=== PATIENT | female | born 1995 | race Caucasian/White ===

== ENCOUNTER 2018-12-17 06:29 | Inpatient (IN) | payer OTHER ==
[2018-12-17] VITALS (15 sets, daily range): BP systolic 99–143; BP diastolic 57–91
[~2018-12-17] VITALS: Ht 177.8 cm; Wt 147.0 kg
[~2018-12-17 06:29] MED LIST: CEPHALEXIN500 M1 ORAL; CEPHALEXIN500 MG ORAL; COLACE100 MG ORAL; DILAUDID2 MG ORAL; INVANZ1 GM IVPB; NKM; NORCO 10/3251 EA ORAL; NORCO 5-325 TA1 EACH ORAL; PERCOCET 5-3251 EACH ORAL; PHENAZOPYRIDIN200 MG ORAL
--- NOTE | 2018-12-17 06:49 | Pre-Procedure Note/Attestation ---
Pre-Procedure Note/Attestation Complete Prior to Procedure Planned Procedure: bilateral Procedure Narrative: Bilateral breast reduction Attestation I attest that I discussed the nature of the procedure; its benefits; risks and complications; and alternatives (and the risks and benefits of such alternatives ), prior to the procedure, with the patient (or the patient's legal apparel trimmings sales representative). I attest that, if there was a reasonable possibility of needing a blood transfusion, the patient (or the patient's legal apparel trimmings sales representative) was given the [facility] standardized written summary, pursuant to the [place] Blood Safety Act ([place] Health and Safety Code # 1645, as amended). I attest that I re-evaluated the patient just prior to the surgery and that there has been no change in the patient's H&P, except as documented below: Ronit Bhatti MD Dec 17, 2018 06:49
[2018-12-17] MEDS ORDERED: ceFAZolin sod 1 GM in NS 55 ML IVPB ONE (07:00)
[2018-12-17] MEDS ORDERED: HYDROmorphone 1mg/ml Carpuject IVP PRN (07:00)
[2018-12-17] MEDS ORDERED: HYDROcodone/Acetamin 5/325 tab ORAL PRN (07:00)
[2018-12-17] MEDS ORDERED: HYDROcodone/Acetamin 10/325 tab ORAL PRN (07:00)
[2018-12-17] MEDS ORDERED: Zolpidem 5mg tab ORAL PRN ×2 (07:00→13:15)
[2018-12-17] MEDS ORDERED: fentaNYL 100 mcg/2 mL IV ONE (07:01)
[2018-12-17] MEDS ORDERED: Midazolam 2mg/2ml Inj ONE (07:01)
[2018-12-17] MEDS ORDERED: MELATONIN10 M1 ORAL (07:02)
[2018-12-17] MEDS ORDERED: Lidocaine 1% MPF 10mg/ml 5ml ONE ×2 (07:06→07:28)
[2018-12-17] MEDS ORDERED: Propofol 200mg/20ml IV ONE (07:06)
[2018-12-17] MEDS ORDERED: EPINEPHrine 1mg/1ml Amp ONE (07:07)
[2018-12-17] MEDS ORDERED: Bacitracin Oint 15gm Tube TOPIC ONE (07:07)
[2018-12-17] MEDS ORDERED: Lidocaine 1% Plain 30 ml INJ ONE (07:08)
[2018-12-17] MEDS ORDERED: Bacitracin 50000 Units Vial ONE (07:08)
[2018-12-17] MEDS ORDERED: TransDerm Scop 1mg/72HR Patch TDERMAL ONE (07:21)
[2018-12-17] MEDS ORDERED: Succinylcholine 20mg/ml 10ml vial ONE (07:22)
[2018-12-17] MEDS ORDERED: Zemuron 50mg/5ml Inj IV ONE ×2 (07:22→09:56)
[2018-12-17] MEDS ORDERED: NS Irrig 1000ml ONE ×2 (08:00)
[2018-12-17] MEDS ORDERED: LR 1000ml ONE ×2 (08:00)
[2018-12-17] MEDS ORDERED: Sterile Water Irrig 1000ml IRRIG ONE ×2 (08:00)
[2018-12-17] MEDS ORDERED: NS Irrig 1000ml IRRIG ONE (08:31)
[2018-12-17] MEDS ORDERED: Morphine Sulfate 10mg/ml Inj ONE (09:05)
[2018-12-17] MEDS ORDERED: Sodium Chloride 10ml vial INJ ONE (09:05)
[2018-12-17] MEDS ORDERED: LR 1000ml 1,000 ML IVLG SCH (09:49)
--- NOTE | 2018-12-17 09:49 | Anethesia Preoperative Eval ---
Anesthesia Pre-op PMH/ROS General Date of Evaluation: Dec 17, 2018 Time of Evaluation: 07:30 Anesthesiologist: Heriberto ASA Score: ASA 3 Mallampati Score Class I : Soft palate, uvula, fauces, pillars visible Class II: Soft palate, uvula, fauces visible Class III: Soft palate, base of uvula visible Class IV: Only hard plate visible Mallampati Classification: Class III Surgeon: Magy Diagnosis: Macromastia Surgical Procedure: Bilateral breasts reduction Anesthesia History: none Family History: no anesthesia problems Allergies: Coded Allergies: SULFA (SULFONAMIDE ANTIBIOTICS) (Unverified Allergy, Intermediate, 12/17/18 ) rash VANCOMYCIN (Verified Adverse Reaction, Severe, johana syndrome. 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 Exam Physician Exam Last Vital Signs Date Time Temp Pulse Resp B/P (MAP) Pulse Ox O2 Delivery O2 Flow Rate FiO2 12/17/18 07:29 Room Air 12/17/18 07:18 97.7 103 20 133/67 (89) 97 Constitutional: NAD Neurologic: CN 2-12 intact Cardiovascular: RRR, no M/R/G Respiratory: CTA Gastrointestinal: other - morbid obesity Airway Exam Mallampati Score: Class III MO: full Neck: flexible ROM: full Teeth: intact Dentures: no upper, no lower Anesthesia Pre-op A/P Labs see chart Urine Test Test 12/17/18 06:45 Urine HCG, Qualitative Negative (NEGATIVE) Studies Pre-op Studies: EKG - NSR Risk Assessment & Plan Assessment: ASA 3 Plan: GA with ETT Status Change Before Surgery: No Pre-Antibiotics Drug: Ancef 2gr. Given Within 1 Hr of Incision: Yes Time Given: 08:50 Jim Louis MD Dec 17, 2018 09:49
[2018-12-17] MEDS ORDERED: Acetaminophen (Non formulary) 100 ML IV ONE (10:00)
[2018-12-17] MEDS ORDERED: TransDerm Scop 1mg/72HR Patch TDERMAL SCH (10:00)
[2018-12-17] MEDS ORDERED: DiphenhydrAMINE 50mg/ml Inj IVP PRN (10:00)
[2018-12-17] MEDS ORDERED: Hydromorphone 0.5mg/0.5ml inj IVP PRN (10:00)
[2018-12-17] MEDS ORDERED: Metoclopramide 10mg/2ml Inj IVP PRN (10:00)
[2018-12-17] MEDS ORDERED: Ketorolac 30mg Inj IV PRN (10:00)
[2018-12-17] MEDS ORDERED: Midazolam 2mg/2ml Inj IVP PRN (10:00)
[2018-12-17] MEDS ORDERED: Meperidine 50mg/ml Inj(FOR RIGORS ONLY) IV PRN (10:00)
[2018-12-17] MEDS ORDERED: Glycopyrrolate 0.2mg/ml 1ml Vial ONE (11:02)
[2018-12-17] MEDS ORDERED: Ketorolac 30mg Inj ONE (11:02)
[2018-12-17] MEDS ORDERED: Neostigmine 1mg/ml 10ml Inj ONE (11:02)
--- NOTE | 2018-12-17 11:35 | Operative Note - PDOC ---
Operative Note Operative Note Pre-op Diagnosis: Bilateral hypermastia Procedure: Bilateral breast reduction Post-op Diagnosis: same as pre-op Surgeon: Magy Chief Electrician: Sergio Torres Anesthesia: general Specimen: yes Complications: none Condition: stable Estimated Blood Loss: minimal Drains: ROSARIO Implant(s) used?: No Ronit Bhatti MD Dec 17, 2018 11:35
--- NOTE | 2018-12-17 11:58 | Immediate Post-Op Evaluation ---
Immediate Post-Op Evalulation Immediate Post-Op Evalulation Procedure: Bilateral breast reduction Date of Evaluation: Dec 17, 2018 Time of Evaluation: 11:57 IV Fluids: 1000 Blood Products: none Estimated Blood Loss: 200 Urinary Output: none Blood Pressure Systolic: 131 Blood Pressure Diastolic: 84 Pulse Rate: 78 Respiratory Rate: 20 O2 Sat by Pulse Oximetry: 99 Temperature (Fahrenheit): 97.4 Pain Score (1-10): 1 Nausea: No Vomiting: No Complications none Patient Status: reacts, patent, extubated Hydration Status: adequate Jim Louis MD Dec 17, 2018 11:58
--- NOTE | 2018-12-17 13:20 | NUR ---
NURSE NOTES: Patient brought to unit at 1305 via bed. Received report from Caron SESAY. Patient is awake alert and oriented x4, no acute distress noted, on 3L NC. Dressing assessed c/d/i. Bilateral axial ROSARIO's compressed, draining serosanguinous fluid. Right foot IV intact and asymptomatic. SCD on left leg. Patient oriented to room, patient's parents at the bedside. Side rails upx3, bed low and locked, call light in reach. Will continue to monitor.
[2018-12-17] MEDS: ceFAZolin sod 1 GM in D5W 55 ML IV SCH (17:02)
--- NOTE | 2018-12-17 17:13 | History and Physical ---
History of Present Illness General Date patient seen: Dec 17, 2018 Reason for Hospitalization: Post op pain management, IV antibiotics Present Illness HPI 23 year old female with PMH of hidradenitis suppurativa s/p excision and reconstructive surgery and bilateral hypermastia causing neck and shoulder pain. Pt admitted post-b/l breast reduction. Pt seen with mother at bedside after procedure. Pt tolerated procedure well, pain adequately controlled on current regiment. Pt denies SOB, abdominal pain, urinary complaints, weakness, dizziness or headaches Allergies: Coded Allergies: Pork (Verified Allergy, Intermediate, Hives, 12/17/18) SULFA (SULFONAMIDE ANTIBIOTICS) (Unverified Allergy, Intermediate, 12/17/18 ) rash VANCOMYCIN (Verified Adverse Reaction, Severe, johana syndrome. Please Run Slower Infusion, 12/17/18) severe rash when given in a fast rate Uncoded Allergies: sea food (Allergy, Severe, Anaphylaxis, 12/17/18) Medication History Scheduled PRN Melatonin (Melatonin), 20 MG ORAL BEDTIME PRN for Insomnia, (Reported) Discontinued Medications Cephalexin* (Keflex*), 500 MG ORAL QID, (Reported) Discontinued Reason: Pt stopped taking med Hydrocodone Bit/Acetaminophen 5-325* ([place] 5-325*), 1 TAB ORAL Q4H PRN for For Pain, (Reported) Discontinued Reason: Pt stopped taking med Hydrocodone Bit/Acetaminophen 5-325* ([place] 5-325*), 2 TAB ORAL Q6H PRN for For Pain, (Reported) Discontinued Reason: Pt stopped taking med No Known Medications* (NKM - No Known Medications*), 0 ., (Reported) Discontinued Reason: Pt stopped taking med Patient History History Provided By: Patient, Family Member, Medical Record Healthcare decision maker Resuscitation status Full Code Advanced Directive on File Past Medical/Surgical History Past Medical/Surgical History: (1) Axillary hidradenitis suppurativa (2) Abscess Family History Family History: Patient reports no known family medical history. Review of Systems ROS Narrative CONSTITUTIONAL: No weight loss, fever, chills, weakness or fatigue. HEENT: Eyes: No visual loss, blurred vision, double vision or yellow sclerae. Ears, Nose, Throat: No hearing loss, sneezing, congestion, runny nose or sore throat. SKIN: No rash or itching. CARDIOVASCULAR: No chest pain, chest pressure or chest discomfort. No palpitations or edema. RESPIRATORY: No shortness of breath, cough or sputum. GASTROINTESTINAL: No anorexia, nausea, vomiting or diarrhea. No abdominal pain or blood. NEUROLOGICAL: No headache, dizziness, syncope, paralysis, ataxia, numbness or tingling in the extremities. No change in bowel or bladder control. MUSCULOSKELETAL: No muscle, back pain, joint pain or stiffness. HEMATOLOGIC: No anemia, bleeding or bruising. LYMPHATICS: No enlarged nodes. No history of splenectomy. PSYCHIATRIC: No history of depression or anxiety. ENDOCRINOLOGIC: No reports of sweating, cold or heat intolerance. No polyuria or polydipsia. ALLERGIES: No history of asthma, hives, eczema or rhinitis. Physical Exam Last 24 Hour Vital Signs Date Time Temp Pulse Resp B/P (MAP) Pulse Ox O2 Delivery O2 Flow Rate FiO2 12/17/18 13:00 97.9 89 23 143/77 100 Nasal Cannula 3 12/17/18 12:52 70 16 127/83 100 Nasal Cannula 3 12/17/18 12:38 97.6 12/17/18 12:36 70 17 122/81 100 Nasal Cannula 3 12/17/18 12:25 77 14 143/88 100 Simple Mask 6 12/17/18 12:15 65 16 128/78 100 Simple Mask 6 12/17/18 12:05 77 16 143/79 100 Simple Mask 6 12/17/18 12:00 76 15 142/86 100 Simple Mask 6 12/17/18 11:58 78 20 99 12/17/18 11:55 97.0 94 20 140/91 100 Simple Mask 6 12/17/18 07:29 Room Air 12/17/18 07:18 97.7 103 20 133/67 (89) 97 Intake and Output 12/16/18 12/17/18 19:00 07:00 # Voids 1 Laboratory Tests Test 12/17/18 06:45 Urine HCG, Qualitative Negative (NEGATIVE) Height (Feet): 5 Height (Inches): 10.00 Weight (Pounds): 324 Medications Current Medications Medications (Trade) Dose Ordered Sig/Suzy Route PRN Reason Start Time Stop Time Status Last Admin Dose Admin Acetaminophen (Tylenol) 650 mg Q4H PRN ORAL FEVER 12/17/18 07:00 01/16/19 06:59 Acetaminophen/ Hydrocodone Bitart ([place] 10/325) 1 tab Q4H PRN ORAL Severe Pain (Pain Scale 7-10) 12/17/18 07:00 12/24/18 06:59 Acetaminophen/ Hydrocodone Bitart ([place] 5/325) 1 tab Q4H PRN ORAL Moderate Pain (Pain Scale 4-6) 12/17/18 07:00 12/24/18 06:59 Cefazolin Sodium 1 gm/Dextrose 55 ml @ 110 mls/hr Q8H IV 12/17/18 17:00 12/18/18 01:29 12/17/18 17:02 Diphenhydramine HCl (Benadryl) 12.5 mg Q6H PRN IVP Itching/Pruritis 12/17/18 07:00 01/16/19 06:59 Diphenhydramine HCl (Benadryl) 25 mg Q15M PRN IVP Itching 12/17/18 10:00 12/17/18 18:00 Heparin Sodium (Porcine) (Heparin 5000 units/ml) 5,000 units EVERY 12 HOURS SUBQ 12/17/18 21:00 01/16/19 20:59 Hydromorphone HCl (Dilaudid) 0.5 mg Q5M PRN IVP Severe Pain (Pain Scale 7-10) 12/17/18 10:00 12/17/18 18:00 12/17/18 12:36 Hydromorphone HCl (Dilaudid) 1 mg Q3H PRN IVP pain score 4-6 12/17/18 07:00 12/24/18 06:59 Hydromorphone HCl (Dilaudid) 2 mg Q3H PRN IVP pain score 7-10 12/17/18 07:00 12/24/18 06:59 Meperidine HCl (Demerol) 25 mg Q15M PRN IV chills 12/17/18 10:00 12/17/18 18:00 12/17/18 12:08 Metoclopramide HCl (Reglan) 10 mg Q1H PRN IVP Nausea & Vomiting 12/17/18 10:00 12/17/18 18:00 Midazolam HCl (Versed 2mg/2ml vial) 1 mg Q15M PRN IVP For Anxiety 12/17/18 10:00 12/17/18 18:00 Ondansetron HCl (Zofran) 4 mg Q6H PRN IVP Nausea & Vomiting 12/17/18 07:00 01/16/19 06:59 Temazepam (Restoril) 7.5 mg DAILYPRN PRN ORAL Insomnia 12/17/18 13:15 12/24/18 06:59 Zolpidem Tartrate (Ambien) 5 mg DAILYPRN PRN ORAL Insomnia 12/17/18 13:15 12/24/18 06:59 Objective Narrative Physical Exam General: alert, cooperative, no distress, appears stated age Head: normocephalic, without obvious abnormality, atraumatic Eyes: conjunctivae/corneas clear. PERRL, EOM's intact Throat: lips, mucosa, and tongue normal. MMM Neck: supple, symmetrical, trachea midline, and no JVD Chest/Lungs: clear to auscultation bilaterally from anterior chest, b/l chest dressing, CDI, ROSARIO drains x 2 Heart: regular rate and rhythm, S1, S2 normal, no murmur, click, rub or gallop Abdomen: soft, non-tender, non-distended, bowel sounds normal; no masses or organomegaly Extremities: extremities normal, atraumatic, no cyanosis or edema Pulses: 2+ and symmetric Skin: skin color, texture, turgor normal; no rashes or lesions Neurologic: grossly normal, no focal deficits Assessment/Plan Status: stable Assessment/Plan Assessment 23 year old female with PMH of hidradenitis suppurativa s/p excision and reconstructive surgery and bilateral hypermastia causing neck and shoulder pain. Pt admitted post-b/l breast reduction. Plan #B/L hypermastia s/p b/l breast reduction - Appreciate plastic surgery care (Dr. Bhatti) -Continue excellent postoperative care - Encourage mobilization/ambulation - Encourage incentive spirometry to optimize pulmonary hygiene - DVT/GI prophylaxis as appropriate - Pain control and supportive care - IV antibiotics per surgical team -Nursing staff to provide ROSARIO drain care Iesha Ramirez MD Dec 17, 2018 17:13
--- NOTE | 2018-12-17 18:16 | Operative Note - Dictated ---
DATE OF OPERATION: 12/17/2018 PREOPERATIVE DIAGNOSIS: Bilateral hypermastia. POSTOPERATIVE DIAGNOSIS: Bilateral hypermastia. PROCEDURE: Bilateral breast reduction using the inferior pedicle Nolen-pattern technique. Left breast had a total of 450 g removed and right breast had a total of 705 g removed. SURGEON: Ronit Bhatti M.D. FOOTBALL SCOUT: Sergio Torres M.D. ANESTHESIA: General. ESTIMATED BLOOD LOSS: Minimal. DRAINS: Included a size #15 ROSARIO on both sides. DISPOSITION: Stable to the recovery room. INDICATIONS FOR SURGERY: This is a 23-year-old female, who is well known to me given her history of hidradenitis suppurativa, for which she has undergone previous excision and reconstructive surgery who also has evidence of bilateral hypermastia. On examination, she had a very large breast, wearing a size I believe 42DDD bra with the right breast larger than the left. She had approximately a grade 2/3 breast ptosis as well. Given the totality of the breast volume and associated neck and shoulder pain that she had. We obtained preauthorization for her to undergo a bilateral breast reduction. We discussed the technique and it was felt that it was best for her to undergo an inferior pedicle Nolen-pattern technique for reduction of both breasts. She understood the risks and benefits of surgery and agreed to proceed. DETAILS OF THE OPERATION: The patient was brought to the operating room and laid in the supine position on the operating room table. Her bilateral breasts were prepped and draped in a sterile and usual fashion. Preoperatively, the markings were made for a bilateral Nolen-pattern inferior pedicle breast reduction technique and once these markings were confirmed, we began on the left breast by first using a 42 mm cookie cutter to nany out the new nipple areolar size over the poarch areola. Once this was done, we began by deepithelializing the pedicle starting from above the nipple areolar complex all the way down to the level of the inframammary fold. Once the pedicle was completely deepithelialized, the remaining markings were cut with electrocautery and the pedicle was completely skeletonized all the way down to the level of the pectoralis fascia. The keyhole that was above the pedicle and within the markings that were made preoperatively were then removed as an unblock piece using a Bovie electrocautery. We then proceeded to remove the lateral and medial excess skin wedges that were also marked out previously. We first began by removing the medial triangle using a first a #10 blade to cut the skin and then the electrocautery was used to remove the remainder of the tissue including the breast and subcutaneous fat tissue, and then we removed larger triangle on the lateral breast extending into the axilla using the #10 blade as well as electrocautery for the remainder of the deeper tissue. Once the breast pedicle was adequately elevated and the tissues were removed, we began to elevate the superior breast tissue to allow for the inset of the pedicle itself. Once this was done, we tentatively closed the wound with lizzie to assess the breast shape and size and we noted that it looked appropriate and based on our discussion preoperatively, she wanted to be approximately a full c based on the reduction that was discussed and we felt that given we had accomplished on the operating table that is the size that she was asked and then totaled the removal of the breast tissue on this side was 430 g. the wound was then opened up. Hemostasis was achieved and temporarily, the wound was left as is until we went to the other side in a similar fashion. The right inferior pedicle was deepithelialized following using the cookie cutter to delineate the new nipple-areolar complex size. Deepithelialization was completed, using a #[address] down from above the nipple-areolar complex to the level of the inframammary fold as was done on the other side. Following this, the pedicle was skeletonized to the level of the pectoralis fascia and then we removed the keyhole portion of the excess breast tissue above the pedicle as was done on the other side. The lateral and medial triangles of excess breast tissue was also removed, first removing the medial breast excess using a #10 blade and electrocautery and the lateral breast tissue with extension of the axilla was similarly removed using a #10 blade and electrocautery. In a similar fashion, as was done on the other side, the pedicle was inset and the breast with tentatively closed and we noted that upon positioning the head of the bed up that the right breast was still larger and so some other additional areas had to be removed to allow for more symmetry and as stated before, the right breast was larger to begin with. In total after the second removal of excess tissue, we took approximately 250 more g of tissue from this side to allow for achievement of symmetry, a total of 705 g was removed from the right breast. Once this was done, we then proceeded to achieve hemostasis after irrigation on this side as well. A size #15 JPs were placed on both sides. We then turned our attention back to the left breast and we brought the vertical limbs of the breast reduction markings together and used the 0 Vicryl to inset it to the middle portion of the pedicle. Once this was done, the vertical limb was then closed using 2-0 and 3-0 Vicryl sutures. The lateral and medial breast incisions were also closed with 2-0 and 3-0 Vicryl sutures. The nipple was inset with 3-0 Vicryl sutures and the remainder of the skin for all the wounds including the vertical and transverse was closed using 3-0 Monocryl and the nipple was inset using a running 4-0 Prolene suture and on the right breast, similar and the exact same sutures were used to close the wound in a similar fashion. We brought the vertical limb together using 2-0 and 3-0 Vicryl sutures. The lateral and medial breast wounds were then closed with 2-0 and 3-0 Vicryl sutures as well and the nipple was inset using 3-0 Vicryl sutures and a running 4-0 Prolene sutures. Dermabond was then applied to both vertical limbs as well as the transverse limbs of the incisions on both breasts. Xeroform was applied to the nipple-areolar complex. Prior to applying the nipple-areolar complex, dressing noted that there was complete viability and normal color to the nipple-areolar complex on both sides. Dressings were applied. A supportive bra was placed. The patient tolerated the procedure well. There were no complications. Ronit Bhatti M.D. DR: PRASAD JOB#: [id number] CC:
--- NOTE | 2018-12-17 19:30 | NUR ---
NURSE NOTES: Report received from LÁZARO John. Patient in stable condition. IV patent, intact in R foot. Bed locked, low position, side rails up x2. Call light within reach. Family at bedside. Will continue to monitor.
--- NOTE | 2018-12-17 19:51 | NUR ---
HAND-OFF: Report given to [place] SESAY. Patient is in stable condition.
--- NOTE | 2018-12-17 21:00 | NUR ---
NURSE NOTES: Assisted to bathroom. Voided without difficulty. Assisted back to bed. Instructed to call as needed to get out of bed. Will continue to monitor,
[2018-12-17] MEDS: Heparin 5000 units/ml inj SUBQ SCH (21:12)
[2018-12-18 00:18] VITALS: BP 114/65
[2018-12-18] MEDS: ceFAZolin sod 1 GM in D5W 55 ML IV SCH (01:22)
[2018-12-18 04:32] VITALS: BP 121/72
--- NOTE | 2018-12-18 07:30 | NUR ---
HAND-OFF: Report given to LÁZARO Mayo.
--- NOTE | 2018-12-18 07:40 | NUR ---
NURSE NOTES: WALKING ROUNDS DONE WITH OUTGOING RN. PATIENT AWAKE IN BED. MOTHER AT BEDSIDE. SURGICAL SITES ASSESSED AND ROSARIO DRAINS TO SUCTION AND INTACT.
[2018-12-18 08:00] VITALS: BP 110/74
--- NOTE | 2018-12-18 08:35 | NUR ---
CASE MANAGEMENT:REVIEW 12/17/18 23 YR OLD FEMALE HERE FOR ELECTIVE SURGERY SI: BILATERAL HYPERMASTIA IS: TO SURGERY FOR BREAST REDUCTION : TO MED/SURG [address] [facility] POST OP INTERQUAL CRITERIA MET 12/18/18 SI: POD #1...S/P BREAST REDUCTION 99.3 104 18 110/74 96% ON 3L/NC IS: IV ANCEF Q8HRS IV DILAUDID Q3 HRS PRN NORCO PO Q4HRS PRN : MED/SURG STATUS [address] [facility]
[2018-12-18] MEDS ORDERED: CEPHALEXIN500 MG ORAL (08:59)
[2018-12-18] MEDS ORDERED: HYDROmorphone 2mg tab ORAL PRN (09:00)
--- NOTE | 2018-12-18 09:02 | Discharge Instructions ---
Discharge Instructions Discharge Instructions Follow up with: Dr. Magy Hansen MD/Return to Hospital if: Fevers, chills, nausea, vomiting. Diet: regular Resume Normal Activity?: Yes Activity: as tolerated For Surgical Patients Clean and Dry: surgical site Dressing Care: keep dry and clean For Congestive Heart Failure Reminder Report to your physician any weight gain of 5 pounds or more in one week. Iesha Ramirez MD Dec 18, 2018 09:02
[2018-12-18] MEDS: Cephalexin 500mg cap ORAL SCH ×2 (09:39→20:34)
--- NOTE | 2018-12-18 09:39 | 48 Hour Post Anesthesia Eval ---
Post Anesthesia Evaluation Procedure: Bilateral breast reduction Date of Evaluation: Dec 18, 2018 Time of Evaluation: 07:01 Blood Pressure Systolic: 121 0: 72 Pulse Rate: 101 Respiratory Rate: 19 Temperature (Fahrenheit): 98.6 O2 Sat by Pulse Oximetry: 95 Airway: patent Nausea: No Vomiting: No Pain Intensity: 2 Hydration Status: adequate Cardiopulmonary Status: Stable Mental Status/LOC: patient returned to baseline Follow-up Care/Observations: 0 Post-Anesthesia Complications: 0 Follow-up care needed: N/A Jordon Otoole MD Dec 18, 2018 09:39
[2018-12-18] MEDS: Heparin 5000 units/ml inj SUBQ SCH ×2 (09:42→20:43)
[2018-12-18 12:00] VITALS: BP 111/60
--- NOTE | 2018-12-18 14:38 | NUR ---
*-* NO INSURANCE INFORMATION IN THE BAR TO SEND CLINICALS OR REVIEWS*-*
[2018-12-18 16:00] VITALS: BP 140/70
--- NOTE | 2018-12-18 17:45 | NUR ---
NURSE NOTES: PLACED CALL TO CONCERNING PATIENT'S ELEVATED TEMP 99.0 AND CURRENTLY 100.2/100.6 ORALLY. ADMINISTERED TYLENOL PO ONCE PATIENT AGREED. PATIENT HAS BEEN ENCOURAGED THROUGHOUT THE DAY TO USE I/S COUGH AND DEEP BREATHE. RETURN DEMONSTRATION IS FAIR HOWEVER, NEEDS ENCOURAGEMENT. PATIENT AMBULATED IN ROOM TO BATHROOM WITH CUSTOMER EXPERIENCE SPECIALIST. PATIENT NEEDS ALOT OF ENCOURAGEMENT TO DO MINIMUM ADLS.RELUCTANT TO MOVE AROUND AND AMBULATE WITH ASSISTANCE.TAKES PATIENT APPROXIMATELY 10 MINS WITH ASSISTANCE TO GET OOB,DANGLE AND THEN AMBULATE TO RESTROOM.
--- NOTE | 2018-12-18 19:30 | NUR ---
NURSE NOTES: Received report from LÁZARO Mayo. Patient alert/oriented. Dressing dry and intact. ROSARIO in place x2. Family at bedside. Patient states she has pain and is hesitant to ambulate at this time. Will give pain medication and reassess. Encouraged to use incentive spirometer, cough, deep breathe, move in bed and ambulate. IV site R foot, intact, patent. Will continue to monitor.
[2018-12-18 20:00] VITALS: BP 107/66
--- NOTE | 2018-12-18 22:39 | General Progress Note ---
Assessment/Plan Assessment/Plan Assessment 23 year old female with PMH of hidradenitis suppurativa s/p excision and reconstructive surgery and bilateral hypermastia causing neck and shoulder pain. Pt admitted post-b/l breast reduction. Plan #B/L hypermastia s/p b/l breast reduction - Appreciate plastic surgery care (Dr. Bhatti) -Continue excellent postoperative care - Encourage mobilization/ambulation - Encourage incentive spirometry to optimize pulmonary hygiene - DVT/GI prophylaxis as appropriate - Pain control and supportive care - antibiotics per surgical team -Nursing staff to provide ROSARIO drain care -Due to pts need for IV pain medications will require inpatient monitoring I spent 45 min on this patients care, and 34 min was dedicated to counseling and /or care coordination Subjective Date patient seen: Dec 18, 2018 Allergies: Coded Allergies: Pork (Verified Allergy, Intermediate, Hives, 12/17/18) SULFA (SULFONAMIDE ANTIBIOTICS) (Unverified Allergy, Intermediate, 12/17/18 ) rash VANCOMYCIN (Verified Adverse Reaction, Severe, johana syndrome. Please Run Slower Infusion, 12/17/18) severe rash when given in a fast rate Uncoded Allergies: sea food (Allergy, Severe, Anaphylaxis, 12/17/18) All Systems: reviewed and negative except above Subjective No acute overnight events, pt complaining of post surgical pain requiring IV pain medications, denies nausea, vomiting, sob or dizziness. Objective Last 24 Hour Vital Signs Date Time Temp Pulse Resp B/P (MAP) Pulse Ox O2 Delivery O2 Flow Rate FiO2 12/18/18 21:00 Room Air 12/18/18 20:00 99.0 116 18 107/66 (80) 94 12/18/18 17:26 100.2 12/18/18 16:00 100.2 105 21 140/70 (93) 96 12/18/18 14:18 99.0 12/18/18 12:00 99.0 116 21 111/60 (77) 99 12/18/18 09:39 101 19 95 12/18/18 09:00 Room Air 12/18/18 08:00 95 12/18/18 08:00 99.3 104 18 110/74 (86) 96 12/18/18 04:32 98.6 101 19 121/72 (88) 95 12/18/18 00:18 98.4 90 18 114/65 (81) 97 Intake and Output 12/17/18 12/18/18 19:00 07:00 Intake Total 1500 ml 120 ml Output Total 240 ml 35 ml Balance 1260 ml 85 ml Intake Oral 400 ml 120 ml IV Total 1100 ml Output Drainage Total 40 ml 35 ml Estimated Blood Loss 200 ml # Voids 1 Height (Feet): 5 Height (Inches): 10.00 Weight (Pounds): 324 Objective General: alert, cooperative, no distress, appears stated age Head: normocephalic, without obvious abnormality, atraumatic Eyes: conjunctivae/corneas clear. PERRL, EOM's intact Throat: lips, mucosa, and tongue normal. MMM Neck: supple, symmetrical, trachea midline, and no JVD Chest/Lungs: clear to auscultation bilaterally from anterior chest, b/l chest dressing, CDI, ROSARIO drains x 2 Heart: regular rate and rhythm, S1, S2 normal, no murmur, click, rub or gallop Abdomen: soft, non-tender, non-distended, bowel sounds normal; no masses or organomegaly Extremities: extremities normal, atraumatic, no cyanosis or edema Pulses: 2+ and symmetric Skin: skin color, texture, turgor normal; no rashes or lesions Neurologic: grossly normal, no focal deficits Iesha Ramirez MD Dec 18, 2018 22:39
[2018-12-19] VITALS: BP 126/85
[2018-12-19 04:00] VITALS: BP 110/73
--- NOTE | 2018-12-19 07:30 | NUR ---
HAND-OFF: Report given to LÁZARO John. Patient in stable condition..
--- NOTE | 2018-12-19 07:45 | NUR ---
NURSE NOTES: Received report from Jonathan SESAY. Patient is awake alert and oriented x4, no acute distress noted. Bilateral ROSARIO's compressed. Dressing dry and intact. Right foot IV intact and asymptomatic, SCD on left leg. Patient reporting pain is "getting better." Patient educated to use IS and walk as tolerated. Side rails upx3, bed low and locked, call light in reach. Will continue to monitor.
[2018-12-19 08:00] VITALS: BP 117/73
[2018-12-19] MEDS: Heparin 5000 units/ml inj SUBQ SCH ×2 (08:46→20:10)
[2018-12-19] MEDS: Cephalexin 500mg cap ORAL SCH ×2 (08:47→19:56)
--- NOTE | 2018-12-19 09:41 | NUR ---
*-* INSURANCE *-* ALL CLINICALS, REVIEWS AND INTERQUAL HAVE BENF AXED TO: MEDICAL MANAGEMENT [place]:MEENU P:[phone] F: [phone] TRK# [id number]
--- NOTE | 2018-12-19 09:42 | General Progress Note ---
Progress Note Progress Note Pt seen and examined. POD# 2 from bilateral breast reduction. Pain improved from yesterday but still present. Will observe for one more day and dc home in AM. MD Magy Rooney Amir MD Dec 19, 2018 09:42
--- NOTE | 2018-12-19 10:14 | NUR ---
NURSE NOTES: Dr. Bhatti saw patient at the bedside, MD stated patient will be discharged tomorrow. MD ordered to give IV dilaudid PRN for pain. Will administer as ordered and continue to monitor.
[2018-12-19 12:00] VITALS: BP 128/86
--- NOTE | 2018-12-19 15:50 | NUR ---
NURSE NOTES: Contacted by Dr. Bhatti. ordered for venous duplex bilateral lower leg. Order entered. Will follow up as needed and continue to monitor.
[2018-12-19 15:55] VITALS: BP 129/81
--- NOTE | 2018-12-19 17:00 | NUR ---
NURSE NOTES: Temperature 100.8. Improving. Encouraged patient to continue IS use while awake. Will continue to monitor.
--- NOTE | 2018-12-19 19:20 | NUR ---
HAND-OFF: Report given to Jonathan SESAY. Patient is in stable condition.
[2018-12-19] MEDS: DiphenhydrAMINE 50mg/ml Inj IVP PRN (19:56)
[2018-12-19 20:00] VITALS: BP 128/78
--- NOTE | 2018-12-19 20:04 | General Progress Note ---
Assessment/Plan Status: stable Assessment/Plan Assessment 23 year old female with PMH of hidradenitis suppurativa s/p excision and reconstructive surgery and bilateral hypermastia causing neck and shoulder pain. Pt admitted post-b/l breast reduction. Plan #B/L hypermastia s/p b/l breast reduction - Appreciate plastic surgery care (Dr. Bhatti) -Continue excellent postoperative care - Encourage mobilization/ambulation - Encourage incentive spirometry to optimize pulmonary hygiene - DVT/GI prophylaxis as appropriate - Pain control and supportive care - antibiotics per surgical team -Nursing staff to provide ROSARIO drain care -Due to pts continued need for IV pain medications will require inpatient monitoring I spent 45 min on this patients care, and 32 min was dedicated to counseling and /or care coordination Subjective Date patient seen: Dec 19, 2018 Allergies: Coded Allergies: Pork (Verified Allergy, Intermediate, Hives, 12/17/18) SULFA (SULFONAMIDE ANTIBIOTICS) (Unverified Allergy, Intermediate, 12/17/18 ) rash VANCOMYCIN (Verified Adverse Reaction, Severe, johana syndrome. Please Run Slower Infusion, 12/17/18) severe rash when given in a fast rate Uncoded Allergies: sea food (Allergy, Severe, Anaphylaxis, 12/17/18) All Systems: reviewed and negative except above Subjective No acute overnight events, pts pain improved however still requiring IV pain medications, denies nausea, vomiting, sob or dizziness. Objective Last 24 Hour Vital Signs Date Time Temp Pulse Resp B/P (MAP) Pulse Ox O2 Delivery O2 Flow Rate FiO2 12/19/18 16:29 100.8 12/19/18 15:55 101.0 122 18 129/81 (97) 96 12/19/18 12:00 99.9 112 18 128/86 (100) 97 12/19/18 09:00 Room Air 12/19/18 08:00 99.4 118 18 117/73 (88) 100 12/19/18 04:00 99.6 110 18 110/73 (85) 95 12/19/18 00:00 98.5 106 18 126/85 (99) 94 12/18/18 21:00 Room Air 12/18/18 20:00 99.0 116 18 107/66 (80) 94 Intake and Output 12/18/18 12/19/18 19:00 07:00 Intake Total 840 ml Output Total 40 ml Balance 800 ml Intake Oral 840 ml Output Drainage Total 40 ml # Voids 2 Height (Feet): 5 Height (Inches): 10.00 Weight (Pounds): 324 Objective General: alert, cooperative, no distress, appears stated age Head: normocephalic, without obvious abnormality, atraumatic Eyes: conjunctivae/corneas clear. PERRL, EOM's intact Throat: lips, mucosa, and tongue normal. MMM Neck: supple, symmetrical, trachea midline, and no JVD Chest/Lungs: clear to auscultation bilaterally from anterior chest, b/l chest dressing, CDI, ROSARIO drains x 2 Heart: regular rate and rhythm, S1, S2 normal, no murmur, click, rub or gallop Abdomen: soft, non-tender, non-distended, bowel sounds normal; no masses or organomegaly Extremities: extremities normal, atraumatic, no cyanosis or edema Pulses: 2+ and symmetric Skin: skin color, texture, turgor normal; no rashes or lesions Neurologic: grossly normal, no focal deficits Iesha Ramirez MD Dec 19, 2018 20:04
[2018-12-19 20:53] LABS: BASOPHILS % (AUTO) 0.6 % (0.0-2.0); EOSINOPHILS % (AUTO) 1.1 % (0.0-3.0); HEMATOCRIT 32.6 % (37.0-47.0); HEMOGLOBIN 10.5 G/DL (12.0-16.0); LYMPHOCYTES % (AUTO) 30.8 % (20.0-45.0); MEAN CORPUSCULAR VOLUME 79 FL (80-99); MONOCYTES % (AUTO) 3.4 % (1.0-10.0); NEUTROPHILS % (AUTO) 64.1 % (45.0-75.0); PLATELET COUNT 211 K/UL (150-450); RED BLOOD COUNT 4.16 M/UL (4.20-5.40); RED CELL DISTRIBUTION WIDTH 13.7 % (11.6-14.8); WHITE BLOOD COUNT 13.3 K/UL (4.8-10.8)
[2018-12-19 21:04] LABS: ANION GAP 6 mmol/L (5-15); BLOOD UREA NITROGEN 7 mg/dL (7-18); CALCIUM 8.8 MG/DL (8.5-10.1); CARBON DIOXIDE 29 MMOL/L (21-32); CHLORIDE 99 MMOL/L (98-107); CREATININE 0.8 MG/DL (0.55-1.30); POTASSIUM 3.6 MMOL/L (3.5-5.1); SODIUM 134 MMOL/L (136-145)
[2018-12-20] VITALS: BP 125/81
[2018-12-20 04:00] VITALS: BP 131/87
[2018-12-20] MEDS: DiphenhydrAMINE 50mg/ml Inj IVP PRN (04:29)
--- NOTE | 2018-12-20 07:30 | NUR ---
NURSE NOTES: Received report from Jonathan SESAY. Patient is awake alert and oriented x4, no acute distress noted. Reporting pain 8/10 in bilateral breasts. Will medicate per order. Dressing c/d/i. Bilateral ROSARIO's compressed. Right foot IV intact and asymptomatic. Patient educated to continue IS use. Side rails upx3, bed low and locked, call light in reach. Will continue to monitor.
[2018-12-20 08:00] VITALS: BP 125/83
[2018-12-20] MEDS: Cephalexin 500mg cap ORAL SCH (08:49)
[2018-12-20] MEDS: Heparin 5000 units/ml inj SUBQ SCH (08:51)
--- NOTE | 2018-12-20 09:13 | NUR ---
NURSE NOTES: Dr. Ramirez aware of patient's tachycardia. MD ordered for NS IV @ 100mL/hr. Order entered. Will carry out and continue to monitor.
[2018-12-20 12:00] VITALS: BP 128/80
--- NOTE | 2018-12-20 12:30 | NUR ---
NURSE NOTES: Bilateral surgical drains removed by Dr. Bhatti. Patient tolerated well.
--- NOTE | 2018-12-20 12:30 | NUR ---
NURSE NOTES: Contacted Dr. Ramirez and informed MD of patient's last HR and temperature, MD stated ok to discharge patient.
--- NOTE | 2018-12-20 13:40 | NUR ---
NURSE NOTES: Patient discharged. No acute distress on discharge. Placed dry dressing on surgical wound per order from Dr. Bhatti and provided patient with dry dressings. Patient given belongings. Patient prescriptions were given to patient's parents prior to discharge. Patient provided with education and stated understanding of discharge teaching. Patient instructed not to drive until cleared by doctor. IV removed intact. Patient escorted off unit via wheelchair to private vehicle. Patient parents will drive patient home.
--- NOTE | 2018-12-22 01:11 | Discharge Summary ---
Discharge Summary Hospital Course Date of Admission Dec 17, 2018 at 06:29 Date of Discharge Dec 20, 2018 at 14:09 Admitting Diagnosis bilateral breast hypertrophy causing neck and back pain HPI Arleth Domingo is a 23 year old female who was admitted on Dec 17, 2018 at 06: 29 for Breast Hypertrophy Consultations Plastic surgery Hospital Course Assessment 23 year old female with PMH of hidradenitis suppurativa s/p excision and reconstructive surgery and bilateral hypermastia causing neck and shoulder pain. Pt admitted post-b/l breast reduction, pt with severe post surgical pain, requiring IV pain medications later transitioned to PO pain regimen with adequate control of pain. Pt noted to be febrile, lower extremity doppler was negative for DVT. Pt also noted to be tachycardic, which resolved with IV hydration and pain control. B/L ROSARIO drains with decreased output, removed prior to discharge. On discharge, pt was ambulating with a stable gait, hemodynamically stable and tolerating PO diet. Physical Exam prior to discharge General: alert, cooperative, no distress, appears stated age Head: normocephalic, without obvious abnormality, atraumatic Eyes: conjunctivae/corneas clear. PERRL, EOM's intact Throat: lips, mucosa, and tongue normal. MMM Neck: supple, symmetrical, trachea midline, and no JVD Chest/Lungs: clear to auscultation bilaterally from anterior chest, b/l chest dressing, CDI, ROSARIO drains x 2 Heart: regular rate and rhythm, S1, S2 normal, no murmur, click, rub or gallop Abdomen: soft, non-tender, non-distended, bowel sounds normal; no masses or organomegaly Extremities: extremities normal, atraumatic, no cyanosis or edema Pulses: 2+ and symmetric Skin: skin color, texture, turgor normal; no rashes or lesions Neurologic: grossly normal, no focal deficits 35 minutes dedicated to discharge planning Discharge Discharge Disposition Patient was discharged to Home () Discharge Diagnoses: (1) Tachycardia (2) Intractable pain (3) Breast hypertrophy (4) Dehydration, moderate Discharge Instructions Discharge Instructions Follow up with: Dr. Magy Hansen MD/Return to Hospital if: Fevers, chills, nausea, vomiting. Activity: as tolerated For Surgical Patients Clean and Dry: surgical site Dressing Care: keep dry and clean Iesha Ramirez MD Dec 22, 2018 01:11
== END 2018-12-20 14:09 | disposition home or self-care (01) | DRG 585 ==
LOC: SDSOVERFLO 06:29 → EDSTATUS 10:00 → 3E 13:03
PROC: 0HBV0ZZ Excision of Bilateral Breast, Open Approach (ICD-10-PCS; principal; 2018-12-17 07:30)
DX: N62 Hypertrophy of breast (principal); M54.2 Cervicalgia; M25.512 Pain in left shoulder; M25.511 Pain in right shoulder; Z88.2 Allergy status to sulfonamides; Z88.1 Allergy status to other antibiotic agents; Z91.013 Allergy to seafood; R00.0 Tachycardia, unspecified; G89.18 Other acute postprocedural pain; E86.0 Dehydration; Z98.890 Other specified postprocedural states
CPT/HCPCS: 36415; 80048; 81025; 85025; 87081; 93970; 94003; 94150; J2250; J2405; J2710

== ENCOUNTER 2019-02-11 08:15 | Inpatient (IN) | payer OTHER ==
[2019-02-11] VITALS (12 sets, daily range): BP systolic 122–154; BP diastolic 59–91
[~2019-02-11] VITALS: Ht 177.8 cm; Wt 147.1 kg
[~2019-02-11 08:15] MED LIST changes: +Heparin1,000 units/500ml Premix(Conc:2 units/ml) INJ PRN; +Lidocaine 1% Plain 30 ml INJ PRN; +MELATONIN10 M1 ORAL
[2019-02-11] MEDS ORDERED: Lidocaine 1% 10mg/ml/Epi 0.005mg/ml 30ml vial INJ ONE (10:25)
[2019-02-11] MEDS ORDERED: Bacitracin 50000 Units Vial ONE ×2 (10:25→11:28)
[2019-02-11] MEDS ORDERED: NeoSporin Gu Irrig 1ml Amp IRRIG ONE ×2 (10:25→11:28)
[2019-02-11] MEDS ORDERED: EPINEPHrine 1mg/1ml Amp ONE (10:25)
--- NOTE | 2019-02-11 10:43 | Anethesia Preoperative Eval ---
Anesthesia Pre-op PMH/ROS General Date of Evaluation: February 11, 2019 Time of Evaluation: 11:14 Anesthesiologist: Xiang ASA Score: ASA 2 Mallampati Score Class I : Soft palate, uvula, fauces, pillars visible Class II: Soft palate, uvula, fauces visible Class III: Soft palate, base of uvula visible Class IV: Only hard plate visible Mallampati Classification: Class III Surgeon: Magy Diagnosis: Hidradenitis Bilateral Groin Surgical Procedure: Bilateral Groin Debridement and Closure Anesthesia History: none Family History: no anesthesia problems Allergies: Coded Allergies: Pork (Verified Allergy, Intermediate, Hives, 02/11/19) SULFA (SULFONAMIDE ANTIBIOTICS) (Unverified Allergy, Intermediate, 02/11/19) rash VANCOMYCIN (Verified Adverse Reaction, Severe, johana syndrome. Please Run Slower Infusion, 02/11/19) severe rash when given in a fast rate Uncoded Allergies: sea food (Allergy, Severe, Anaphylaxis, 12/17/18) Medications: see eMAR Patient NPO?: Yes Past Medical History Other: obesity - BMI 50 Morbid PSxH Narrative: Bilateral Breast Reduction, Hidradenitis Sxs Anesthesia Pre-op Phys. Exam Physician Exam Last Vital Signs Date Time Temp Pulse Resp B/P (MAP) Pulse Ox O2 Delivery O2 Flow Rate FiO2 02/11/19 09:00 Room Air 02/11/19 08:55 97.7 80 18 129/77 100 Constitutional: NAD Neurologic: CN 2-12 intact Cardiovascular: RRR Respiratory: CTA Gastrointestinal: S/NT/ND Airway Exam Mallampati Score: Class III MO: full ROM: full Teeth: intact Anesthesia Pre-op A/P Labs Urine Test Test 02/11/19 08:15 Urine HCG, Qualitative Negative (NEGATIVE) Risk Assessment & Plan Assessment: ASA 2 Plan: GA, SED, GlideScope Go Status Change Before Surgery: No Pre-Antibiotics Dru Grams Ancef IV Given Within 1 Hr of Incision: Yes Time Given: 11:26 Jordon Otoole MD February 11, 2019 10:43
[2019-02-11] MEDS ORDERED: Dexamethasone 4mg/ml vial ONE (10:58)
[2019-02-11] MEDS ORDERED: Sodium Chloride 10ml vial INJ ONE (10:58)
[2019-02-11] MEDS ORDERED: Lidocaine 1% MPF 10mg/ml 5ml ONE (10:58)
--- NOTE | 2019-02-11 10:58 | Pre-Procedure Note/Attestation ---
Pre-Procedure Note/Attestation Complete Prior to Procedure Planned Procedure: bilateral Procedure Narrative: Bilateral groin debridement and reconstruction Attestation I attest that I discussed the nature of the procedure; its benefits; risks and complications; and alternatives (and the risks and benefits of such alternatives ), prior to the procedure, with the patient (or the patient's legal telephone services sales representative). I attest that, if there was a reasonable possibility of needing a blood transfusion, the patient (or the patient's legal telephone services sales representative) was given the [facility] standardized written summary, pursuant to the Warren Rogers Blood Safety Act ([place] Health and Safety Code # 1645, as amended). I attest that I re-evaluated the patient just prior to the surgery and that there has been no change in the patient's H&P, except as documented below: Ronit Bhatti MD February 11, 2019 10:58
[2019-02-11] MEDS ORDERED: fentaNYL 100 mcg/2 mL IV ONE ×2 (10:59→12:02)
[2019-02-11] MEDS ORDERED: NS Irrig 1000ml ONE (11:00)
[2019-02-11] MEDS ORDERED: Neostigmine 1mg/ml 10ml Inj ONE (11:00)
[2019-02-11] MEDS ORDERED: Sterile Water Irrig 1000ml IRRIG ONE (11:00)
[2019-02-11] MEDS ORDERED: LR 1000ml ONE (11:00)
[2019-02-11] MEDS ORDERED: Propofol 1,000mg/ 100ml btl IV ONE (11:00)
[2019-02-11] MEDS ORDERED: PCA Education Pamphlet MISC ONE (11:00)
[2019-02-11] MEDS ORDERED: NS Irrig 1000ml IRRIG ONE (11:19)
[2019-02-11] MEDS ORDERED: LR 1000ml 1,000 ML IVLG SCH (12:17)
--- NOTE | 2019-02-11 12:17 | Immediate Post-Op Evaluation ---
Immediate Post-Op Evalulation Immediate Post-Op Evalulation Procedure: Bilateral Groin Debridement and Closure Date of Evaluation: February 11, 2019 Time of Evaluation: 13:17 IV Fluids: 800 LR Blood Products: 0 Estimated Blood Loss: 50 Urinary Output: 0 Blood Pressure Systolic: 149 Blood Pressure Diastolic: 87 Pulse Rate: 109 Respiratory Rate: 18 O2 Sat by Pulse Oximetry: 100 Temperature (Fahrenheit): 98.4 Pain Score (1-10): 2 Nausea: No Vomiting: No Complications 0 Patient Status: awake, reacts, patent, extubated, none Hydration Status: adequate Dru Grams Ancef IV Given Within 1 Hr of Incision: Yes Time Given: 11:26 Jordon Otoole MD February 11, 2019 12:17
[2019-02-11] MEDS ORDERED: Glycopyrrolate 0.2mg/ml 1ml Vial ONE ×2 (12:21→12:25)
[2019-02-11] MEDS ORDERED: Midazolam 2mg/2ml Inj IVP PRN (12:30)
[2019-02-11] MEDS ORDERED: LORazepam Inj 2mg/ml 1ml IV PRN (12:30)
[2019-02-11] MEDS ORDERED: HYDROcodone/Acetamin 5/325 tab ORAL PRN (12:30)
[2019-02-11] MEDS ORDERED: oxyCODONE HCL/Acetaminophen 5/325mg ORAL PRN (12:30)
[2019-02-11] MEDS ORDERED: HYDROcodone/Acetamin 7.5/325 tab ORAL PRN (12:30)
[2019-02-11] MEDS ORDERED: Hydromorphone 0.5mg/0.5ml inj IVP PRN (12:30)
[2019-02-11] MEDS ORDERED: fentaNYL 100 mcg/2 mL IV PRN (12:30)
[2019-02-11] MEDS ORDERED: Acetaminophen (Non formulary) 100 ML IV ONE (12:30)
[2019-02-11] MEDS ORDERED: DiphenhydrAMINE 50mg/ml Inj IVP PRN (12:30)
[2019-02-11] MEDS ORDERED: Metoclopramide 10mg/2ml Inj IVP PRN (12:30)
[2019-02-11] MEDS ORDERED: Atropine Sulfate 0.4mg/ml inj IVP PRN (12:30)
[2019-02-11] MEDS ORDERED: Meperidine 50mg/ml Inj(FOR RIGORS ONLY) IVP PRN (12:30)
[2019-02-11] MEDS ORDERED: Ketorolac 30mg Inj IV PRN ×2 (12:30)
[2019-02-11] MEDS ORDERED: Labetalol 5mg/ml 20ml vial IV PRN (12:30)
--- NOTE | 2019-02-11 12:48 | Diagnostic Imaging Report ---
Indication: intermediate accountant venous access Findings: After the indications, procedure, risks, complications, and alternatives of the procedure were explained, written informed consent was obtained. The left upper extremity was prepped with alcohol. All elements of maximal sterile barrier technique were followed including usage of a cap, mask, sterile gown, sterile gloves, hand hygiene and a large sterile sheet. Sonographic evaluation of the upper extremity was performed demonstrating a patent and compressible basilic vein. Access was obtained under real-time ultrasound guidance (with utilization of sterile gel and sterile probe cover) and digital image was saved and archived. An .018 wire was introduced. Needle exchanged for a 5 Khmer peel-away sheath. Measurements were obtained. A 5 Khmer dual-lumen Power PICC line catheter was cut to 40 cm and introduced over the wire. Peel-away sheath and wire were removed.Catheter was secured to the skin using 2-0 Prolene suture. Both ports aspirate and flush easily. A single fluoroscopic image shows the distal tip in the superior vena cava. Total fluoroscopic time 96 seconds Impression: Successful placement of an upper extremity PICC line catheter
--- NOTE | 2019-02-11 12:55 | Operative Note - PDOC ---
Operative Note Operative Note Pre-op Diagnosis: Bilateral groin HS Post-op Diagnosis: Same Post-op Diagnosis: same as pre-op Surgeon: Magy [employer] Operations Officer: Dyana Anesthesia: general Specimen: yes Complications: none Condition: stable Estimated Blood Loss: minimal Drains: ROSARIO Implant(s) used?: No Ronit Bhatti MD February 11, 2019 12:55
[2019-02-11] MEDS ORDERED: PCA HYDROmorphone 1mg/ml 30 ML IV PRN (13:18)
[2019-02-11] MEDS ORDERED: Rate Change PCA 1 Each MISC PRN (13:19)
[2019-02-11] MEDS ORDERED: PCA HYDROmorphone 1mg/ml 30 ML IV ONE (13:20)
--- NOTE | 2019-02-11 14:15 | NUR ---
NURSE NOTES:RECEIVED PATIENT FR.PACU BY BED S/P BILATERAL GROIN DEBRIDEMENT/CLOSURE.BY BED.A/OX4,MOVING ALL EXTREMITIES.PAIN LEVEL 4/10,ON TRIMMER SAWYER DILAUDID WITH SETTING OF:0.2/LO:6 MINUTES/6MG 4HR MAX.PATIENT WAS PROVIDED RE:TRIMMER SAWYER EDUCATION AND VERBALIZE WITH UNDERSTANDING.LEFT UPPER PICC LINE X2 PORTS PATENT/INTACT.ON 2LITERS N/C .PLAN OF CARE DISCUSSED. FAMILY AT BEDSIDE.
--- NOTE | 2019-02-11 16:39 | History and Physical ---
History of Present Illness General Date patient seen: February 11, 2019 Time patient seen: 15:15 Reason for Hospitalization: Hidradenitis suppurativa Present Illness HPI 23 year woman with history of morbid obesity, hidradenitis suppurativa s/p excision and reconstructive surgery and bilateral hypermastia post-b/l breast reduction who underwent bilateral groin debridement and closure today with Dr. Bhatti. She has been having significant pain and discomfort recently, also with intermittent subjective fevers. Patient seen in the post-op setting. She denies any severe pain, chest pain, dyspnea, nausea, vomiting or abdominal pain. Family HIstory: No premature CAD Social History: No current tobacco use Allergies: Coded Allergies: Pork (Verified Allergy, Intermediate, Hives, 02/11/19) SULFA (SULFONAMIDE ANTIBIOTICS) (Unverified Allergy, Intermediate, 02/11/19) rash VANCOMYCIN (Verified Adverse Reaction, Severe, johana syndrome. Please Run Slower Infusion, 02/11/19) severe rash when given in a fast rate Uncoded Allergies: sea food (Allergy, Severe, Anaphylaxis, 12/17/18) Medication History Scheduled PRN Melatonin (Melatonin), 20 MG ORAL BEDTIME PRN for Insomnia, (Reported) Discontinued Medications Cephalexin* (Keflex*), 500 MG ORAL EVERY 12 HOURS Discontinued Reason: Pt stopped taking med Patient History Healthcare decision maker N Resuscitation status Advanced Directive on File Family History Family History: Patient reports no known family medical history. Review of Systems Constitutional: Reports: fever; Denies: chills Respiratory: Denies: cough Cardiovascular: Denies: chest pain Gastrointestinal: Denies: abdominal pain Genitourinary: Denies: dysuria Musculoskeletal: Denies: back pain Skin: Denies: rash Neurological: Denies: headache Physical Exam General Appearance: alert HEENT: atraumatic, anicteric Neck: supple, normal inspection Respiratory/Chest: lungs clear, normal breath sounds Cardiovascular/Chest: normal rate, regular rhythm Abdomen: non tender, soft Extremities: non-tender, no calf tenderness, other - Surgical dressings in place Neurologic: core carrier II-XII grossly normal, no motor/sensory deficits, alert Last 24 Hour Vital Signs Date Time Temp Pulse Resp B/P (MAP) Pulse Ox O2 Delivery O2 Flow Rate FiO2 02/11/19 16:00 18 02/11/19 14:30 18 02/11/19 14:15 Nasal Cannula 2.0 02/11/19 14:15 18 02/11/19 14:06 97.8 02/11/19 14:06 97.8 02/11/19 14:00 16 02/11/19 14:00 97.8 70 16 135/79 100 Nasal Cannula 3 02/11/19 13:50 71 14 145/91 100 Nasal Cannula 3 02/11/19 13:43 15 02/11/19 13:40 73 16 150/91 100 Nasal Cannula 3 02/11/19 13:30 70 18 154/83 100 Simple Mask 6 02/11/19 13:20 94 19 154/82 100 Simple Mask 6 02/11/19 13:15 92 17 143/79 100 Simple Mask 6 02/11/19 13:10 96 15 146/76 100 Simple Mask 6 02/11/19 13:06 98.1 100 16 149/87 100 Simple Mask 6 02/11/19 13:04 109 18 100 02/11/19 09:00 Room Air 02/11/19 08:55 97.7 80 18 129/77 100 Room Air Laboratory Tests Test 02/11/19 08:15 Urine HCG, Qualitative Negative (NEGATIVE) Height (Feet): 5 Height (Inches): 10.00 Weight (Pounds): 325 Medications Current Medications Medications (Trade) Dose Ordered Sig/Suzy Route PRN Reason Start Time Stop Time Status Last Admin Dose Admin Acetaminophen (Tylenol) 650 mg Q4H PRN ORAL FEVER 02/11/19 11:00 03/13/19 10:59 Acetaminophen/ Hydrocodone Bitart ([place] 5/325) 1 tab Q1H PRN ORAL Mild Pain (Pain Scale 1-3) 02/11/19 12:30 02/11/19 20:00 Acetaminophen/ Hydrocodone Bitart ([place] 7.5/325) 1 tab Q1H PRN ORAL Moderate Pain (Pain Scale 4-6) 02/11/19 12:30 02/11/19 20:00 Al Hydroxide/Mg Hydroxide (Mylanta) 15 ml Q1H PRN ORAL gi upset 02/11/19 12:30 02/11/19 20:00 Atropine Sulfate (Atropine 0.4mg/ ml) 0.5 mg Q5M PRN IVP HR<40 02/11/19 12:30 02/11/19 20:00 Cefazolin Sodium 2 gm/Dextrose 110 ml @ 220 mls/hr Q8H IVPB 02/11/19 20:00 02/18/19 19:59 Dextrose (Dextrose 50%) 25 ml Q30M PRN IV Hypoglycemia 02/11/19 14:30 03/13/19 14:29 Dextrose (Dextrose 50%) 50 ml Q30M PRN IV Hypoglycemia 02/11/19 14:30 03/13/19 14:29 Diphenhydramine HCl (Benadryl) 25 mg Q15M PRN IVP Itching 02/11/19 12:30 02/11/19 20:00 Heparin Sodium (Porcine) (Heparin 5000 units/ml) 5,000 units EVERY 8 HOURS SUBQ 02/11/19 22:00 03/13/19 21:59 Heparin Sodium/ Sodium Chloride (Heparin 1000 units/500ml Premix) 1,000 unit ONCE PRN INJ RADIOLOGY 02/11/19 08:00 02/11/19 23:59 Hydromorphone HCl 30 ml @ 0 mls/hr Q24H PRN IV For Pain 02/11/19 13:18 02/13/19 13:17 02/11/19 13:42 Hydromorphone HCl (Dilaudid) 0.5 mg Q15M PRN IVP Severe Pain (Pain Scale 7-10) 02/11/19 12:30 02/11/19 20:00 Hydromorphone HCl (Dilaudid) 2 mg Q3H PRN SUBQ Severe Pain (Pain Scale 7-10) 02/11/19 13:30 02/13/19 13:29 Hydromorphone HCl (Dilaudid) 2 mg Q4H PRN IVP Moderate Pain (Pain Scale 4-6) 02/11/19 13:30 02/13/19 13:29 Ketorolac Tromethamine (Toradol 30mg) 15 mg Q1H PRN IV Moderate Breakthru Pain (5-7) 02/11/19 12:30 02/11/19 20:00 Ketorolac Tromethamine (Toradol 30mg) 30 mg Q1H PRN IV Severe Breakthru Pain (>7) 02/11/19 12:30 02/11/19 20:00 Lidocaine HCl (Xylocaine 1% 30ml) 30 ml ONCE PRN INJ radiology 02/11/19 08:00 02/11/19 23:59 Metoclopramide HCl (Reglan) 10 mg Q1H PRN IVP Nausea & Vomiting 02/11/19 12:30 02/11/19 20:00 Miscellaneous Medication (BRIM SETTER Rate Change) 1 ea DAILY PRN MISC rate change 02/11/19 13:19 02/13/19 13:18 Miscellaneous Medication (BRIM SETTER shift volume) 1 ea Q12HR@0700,1900 MISC 02/11/19 19:00 02/13/19 18:59 Naloxone HCl (Narcan) 0.1 mg PRN IV RR<10 sbp<90 02/11/19 13:30 02/13/19 13:29 Ondansetron HCl (Zofran) 4 mg Q6H PRN IVP Nausea & Vomiting 02/11/19 11:00 03/13/19 10:59 Assessment/Plan Assessment/Plan: #Hidradenitis suppurativa with subjective fevers and multiple draining abscesses (no evidence of sepsis at this time), s/p bilateral groin debridement and closure - Discussed with Dr. Bhatti - Ancef 2 g IV q8H - Continue excellent postoperative care - Encourage mobilization/ambulation - Encourage incentive spirometry to optimize pulmonary hygiene - DVT/GI prophylaxis as appropriate - Pain control and supportive care #Morbid obesity - outpatient followup VTE PPx Heparin SC Full Code Ramesh Bocanegra MD February 11, 2019 16:39
--- NOTE | 2019-02-11 18:45 | NUR ---
NURSE NOTES:transferred to room 306 by bed.re:current room(312) ac not working.
[2019-02-11] MEDS: PCA shift volume MISC SCH (19:00)
--- NOTE | 2019-02-11 19:15 | Operative Note - Dictated ---
DATE OF OPERATION: 02/11/2019 PREOPERATIVE DIAGNOSIS: Bilateral groin hidradenitis suppurativa. POSTOPERATIVE DIAGNOSIS: Bilateral groin hidradenitis suppurativa. PROCEDURES: 1. Excision of left [place] [address]. 2. Excision of right [place]in [place] [address]. 3. Adjacent tissue transfer of complex wound measuring 10 x 8 cm of the right groin wound. CPT code 89588 and 89834. SURGEON: Ronit Bhatti M.D. TELEHEALTH NURSE: Yohan Turpin M.D. ANESTHESIA: General. COMPLICATIONS: None. DRAINS: Included a size 15 ROSARIO in the right groin wound. SPECIMEN: Included bilateral groin tissue. DISPOSITION: Stable to the recovery room. INDICATIONS FOR SURGERY: This is a 23-year-old female, who is well known to me as having had multiple surgeries in the past for hidradenitis suppurativa involving her bilateral axilla as well as the bilateral lower extremities and groin, who has new areas of disease in her right upper groin and left mid groin. Upon evaluation by me, there appeared to be nodules present consistent with a stage II disease on the left side and a stage II/III disease on the right side with pain and tenderness on the right side in particular. I felt that she was an appropriate candidate for a radical excision of the involved tissue with reconstruction. She understood the risks and benefits of surgery and agreed to proceed. DETAILS OF THE OPERATION: The patient was brought to the operating room and laid in the supine position on the operating room table. After induction of anesthesia, she was placed in lithotomy. We first began on the left side where an elliptical type of incision was designed to encompass the area of her disease. A #15 blade was then used to excise this area and once this was fully excised, we noted that there was no remnant present at the base of the wound. There was some undermining done on both sides to allow for a complex closure of the wound. As such, following the excision and undermining on both sides of the wound, we were able to bring the wound edges together to complete our complex closure of left groin wound, which measured in length 9.5 cm. There was not much depth to it, so we decided not to put a drain on this side. However, a layered closure was pursued with #0 and 2-0 Vicryl sutures and a running 3-0 Prolene was used for the skin that was further reinforced with a 2-0 Prolene. We then turned our attention to the right groin and this had a complex distribution of disease, which resulted in a T-shaped type of excision pattern design. Once this pattern was designed, a #10 blade was then used to make the T-type of incision resulting in a very large defect that was 10 x 8 cm. It was definitely not amenable to closure just by simple undermining of the tissues. As such, we had to raise skin flaps at the vertical aspect of the T limb on both sides. These were done by raising skin flaps superiorly with blood supply coming from the superior epigastric artery and then the lower aspect, which was the top point of the T, which was on the inferior aspect of the wound. There was further undermining performed to allow for elevation of the medial thigh flap as well to allow for the conglomeration of the three flaps to come together to allow for adjacent tissue transfer closure of the wound. Prior to definitive closure, we achieved hemostasis and pulse lavage irrigation was also used to irrigate the wound. Surgicel was placed in the base of this wound. A ROSARIO drain was also placed in the wound bed and we then proceeded to complete the adjacent tissue transfer by reapproximating the 3 skin flaps using #0 and 2-0 Vicryl sutures and a running 3-0 Prolene was used to close the skin and a vertical interrupted 2-0 Prolene were also used to reinforce the closure. We then applied Dermabond to the skin edges to the incision and dressings were applied. There was no complications. Ronit Bhatti M.D. DR: ISABELEL JOB#: [id number] CC: ARIN
--- NOTE | 2019-02-11 19:25 | NUR ---
HAND-OFF: Report given to mango lopes rn.patient stable.
--- NOTE | 2019-02-11 20:00 | NUR ---
NURSE NOTES: recvd report from day shift nurse; pt a/o x 4; very upbeat; no sob; surgical wound covered with dressing dry and intact; Picc line dressing dry and intact; no sign of infection; SCD running as ordered; safety precautions in place; bedside table/call light within reach; bed at lowest position.
[2019-02-11] MEDS ORDERED: Heparin 5000 units/ml inj SUBQ SCH (21:00)
[2019-02-11] MEDS: Heparin 5000 units/ml inj SUBQ SCH (21:49)
[2019-02-11] MEDS: ceFAZolin sod 2 GM in D5W 110 ML IVPB SCH (21:50)
[2019-02-12] VITALS: BP 128/76
[2019-02-12] MEDS ORDERED: Albuterol/Ipratropium 3ml neb HHN PRN (03:30)
[2019-02-12 04:00] VITALS: BP 133/74
[2019-02-12] MEDS: ceFAZolin sod 2 GM in D5W 110 ML IVPB SCH ×3 (04:14→20:00)
--- NOTE | 2019-02-12 05:13 | NUR ---
NURSE NOTES: Patient complaining of shortness of breath. 02 sat at 95% on 2L Nasal Canula. MD made aware with orders of breathing TX and CXR. Noted and carried out. Resting in the bed at the moment.
[2019-02-12] MEDS: Heparin 5000 units/ml inj SUBQ SCH ×3 (05:19→21:52)
[2019-02-12 06:22] LABS: BASOPHILS % (AUTO) 0.3 % (0.0-2.0); HEMATOCRIT 36.4 % (37.0-47.0); HEMOGLOBIN 11.6 G/DL (12.0-16.0); LYMPHOCYTES % (AUTO) 22.1 % (20.0-45.0); MEAN CORPUSCULAR VOLUME 76 FL (80-99); MONOCYTES % (AUTO) 5.5 % (1.0-10.0); PLATELET COUNT 308 K/UL (150-450); RED BLOOD COUNT 4.78 M/UL (4.20-5.40); RED CELL DISTRIBUTION WIDTH 13.5 % (11.6-14.8)
[2019-02-12 06:31] LABS: ANION GAP 4 mmol/L (5-15); BLOOD UREA NITROGEN 12 mg/dL (7-18); CALCIUM 8.9 MG/DL (8.5-10.1); CARBON DIOXIDE 29 MMOL/L (21-32); CHLORIDE 102 MMOL/L (98-107); CREATININE 0.8 MG/DL (0.55-1.30); POTASSIUM 4.4 MMOL/L (3.5-5.1); SODIUM 135 MMOL/L (136-145)
[2019-02-12] MEDS: PCA shift volume MISC SCH ×2 (07:02→19:29)
--- NOTE | 2019-02-12 07:10 | NUR ---
NURSE NOTES:BEDSIDE ROUNDS DONE WITH GABRIELA CAPPS RN.PATIENT AWAKE A/OX4,ON 3 LITERS N/C RE:WITH SOB ON EXERTION,ON RT TX,COMPLIANT IN USING I/S,AWAITING FOR CXR RESULT.BILATERAL GROIN DRESSING C/D/I,ROSARIO WITH SEROUS DRAINAGE.PICC LINE NATTY PATENT.ON ADJUNCT PHYSICAL EDUCATION INSTRUCTOR FOR PAIN MGT.01/16.WILL CONTINUE PLAN OF CARE.
[2019-02-12 08:00] VITALS: BP 120/69
--- NOTE | 2019-02-12 08:19 | 48 Hour Post Anesthesia Eval ---
Post Anesthesia Evaluation Procedure: Bilateral Groin Debridement and Closure Date of Evaluation: February 12, 2019 Time of Evaluation: 06:18 Blood Pressure Systolic: 133 0: 74 Pulse Rate: 86 Respiratory Rate: 20 Temperature (Fahrenheit): 98.2 O2 Sat by Pulse Oximetry: 98 Airway: patent Nausea: No Vomiting: No Pain Intensity: 2 Hydration Status: adequate Cardiopulmonary Status: Stable Mental Status/LOC: patient returned to baseline Follow-up Care/Observations: 0 Post-Anesthesia Complications: 0 Follow-up care needed: N/A Jordon Otoole MD February 12, 2019 08:19
--- NOTE | 2019-02-12 10:25 | Diagnostic Imaging Report ---
Indication: Dyspnea Comparison: 08/04/2015 A single view chest radiograph was obtained. Findings: Borderline cardiomegaly with mild pulmonary vascular congestion suspected although lung volumes are quite low. Clinical correlation needed. There is a PICC line present which is in good position. IMPRESSION: Suspected mild pulmonary vascular congestion. Correlate clinically
[2019-02-12 11:31] VITALS: BP 130/70
--- NOTE | 2019-02-12 12:55 | NUR ---
NURSE NOTES:SEEN BY DR. DELA CRUZ,AWARE OF CXR RESULT.NO ORDERS
--- NOTE | 2019-02-12 12:56 | General Progress Note ---
Progress Note Progress Note Pt seen and examined. Doing well. POD# 1 Dressings CDI. Plan for possible dressing change in Am. Continue abx and pain control. Ronit Bhatti MD FACS Ronit Bhatti MD February 12, 2019 12:56
--- NOTE | 2019-02-12 13:10 | NUR ---
*-* NO INSURANCE INFORMATION IN THE BAR TO SEND CLINICALS AND REVIEWS *-*
--- NOTE | 2019-02-12 14:08 | NUR ---
CASE MANAGEMENT:REVIEW 02/11/19 23 YR OLD FEMALE HERE FOR SURGERY SI: BILATERAL GROIN HIDRADENITIS SUPPURATIVA 97.7 80 18 129/77 100% ON RA IS: TO SURGERY FOR: EXCISION OF RT AND LT GROIN HIDRADENITIS IV ANCEF Q8HRS VEHICLE DAMAGE APPRAISER DILAUDID : TO MED/SURG 3 EAST POST OP PLAN: MONITOR ROSARIO DRAINAGE INTERQUAL CRITERIA MET 02/12/19 SI: POD #1...ROSARIO DRAIN W/20CC OUT 97.8 70 16 135/79 100% ON 3L/NC WBC+12.0 H/H-11.6/36.4 NA-135 GLUCOSE+137 IS: IV ANCEF Q8HRS VEHICLE DAMAGE APPRAISER DILAUDID HEPARIN SQ Q8HRS : MED/SURG STATUS 3 EAST PLAN: UPON DISCHARGE PATIENT WILL NEED HOME HEALTH FOR WOUND CARE AND TREATMENT WAITING TO HEAR FROM HEALTH PLAN
[2019-02-12] MEDS: DiphenhydrAMINE 50mg/ml Inj IVP PRN ×2 (15:10)
--- NOTE | 2019-02-12 15:10 | NUR ---
NURSE NOTES:MEDICATED WITH BENADRYL IV FOR C/O ITCHING.PAIN IS WELL CONTROLLED WITH INFORMATION RECEPTIONIST,NO SOB.ROOM AIR.
[2019-02-12 15:34] VITALS: BP 115/70
--- NOTE | 2019-02-12 17:20 | General Progress Note ---
Assessment/Plan Assessment/Plan: #Hidradenitis suppurativa with subjective fevers and multiple draining abscesses (no evidence of sepsis at this time), s/p bilateral groin debridement and closure - continue Ancef 2 g IV q8H - Continue excellent postoperative care - Encourage mobilization/ambulation - Encourage incentive spirometry to optimize pulmonary hygiene - DVT/GI prophylaxis as appropriate - Pain control and supportive care #Morbid obesity - outpatient followup VTE PPx Heparin SC Full Code Subjective Date patient seen: February 12, 2019 Time patient seen: 05:00 ROS Limited/Unobtainable: No Constitutional: Denies: chills, fever Respiratory: Reports: shortness of breath Gastrointestinal/Abdominal: Denies: abdominal pain, constipated, diarrhea Neurologic/Psychiatric: Denies: anxiety Allergies: Coded Allergies: Pork (Verified Allergy, Intermediate, Hives, 02/11/19) SULFA (SULFONAMIDE ANTIBIOTICS) (Unverified Allergy, Intermediate, 02/11/19) rash VANCOMYCIN (Verified Adverse Reaction, Severe, johana syndrome. Please Run Slower Infusion, 02/11/19) severe rash when given in a fast rate Uncoded Allergies: sea food (Allergy, Severe, Anaphylaxis, 12/17/18) Subjective Medicine follow up for severe bilateral groin hidradenitis s/p excision. Overnight had some nonspecific dyspnea, no hypoxemia or chest pain. Responded to nebulizers. Objective Last 24 Hour Vital Signs Date Time Temp Pulse Resp B/P (MAP) Pulse Ox O2 Delivery O2 Flow Rate FiO2 02/12/19 16:00 18 02/12/19 15:34 98.0 77 19 115/70 (85) 99 02/12/19 12:00 20 02/12/19 11:31 97.7 76 20 130/70 (90) 95 02/12/19 08:19 86 20 98 02/12/19 08:00 20 02/12/19 08:00 97.7 84 19 120/69 (86) 98 02/12/19 07:10 Nasal Cannula 3.0 02/12/19 04:47 88 18 99 Nasal Cannula 2.0 02/12/19 04:43 28 02/12/19 04:42 Nasal Cannula 2.0 28 02/12/19 04:41 99 Nasal Cannula 2.0 28 02/12/19 04:35 85 18 99 Nasal Cannula 2.0 28 02/12/19 04:00 20 02/12/19 04:00 98.2 86 20 133/74 (93) 98 02/12/19 00:00 98.2 99 20 128/76 (93) 98 02/12/19 00:00 20 02/11/19 21:00 Room Air 02/11/19 20:00 18 02/11/19 20:00 97.7 102 18 122/59 (80) 97 Intake and Output 02/11/19 02/12/19 19:00 07:00 Intake Total 1350 ml 1000 ml Output Total 40 ml 20 ml Balance 1310 ml 980 ml Intake Oral 300 ml 1000 ml IV Total 1050 ml Output Drainage Total 10 ml 20 ml Estimated Blood Loss 30 ml # Voids 1 1 # Bowel Movements 1 1 Laboratory Tests 02/12/19 05:30: White Blood Count 12.0H, Red Blood Count 4.78, Hemoglobin 11.6L, Hematocrit 36.4L, Mean Corpuscular Volume 76L, Mean Corpuscular Hemoglobin 24.4L, Mean Corpuscular Hemoglobin Concent 32.0, Red Cell Distribution Width 13.5, Platelet Count 308, Mean Platelet Volume 7.4, Neutrophils (%) (Auto) 72.0, Lymphocytes (% ) (Auto) 22.1, Monocytes (%) (Auto) 5.5, Eosinophils (%) (Auto) 0.0, Basophils ( %) (Auto) 0.3, Sodium Level 135L, Potassium Level 4.4, Chloride Level 102, Carbon Dioxide Level 29, Anion Gap 4L, Blood Urea Nitrogen 12, Creatinine 0.8, Estimat Glomerular Filtration Rate > 60, Glucose Level 137H, Calcium Level 8.9 Height (Feet): 5 Height (Inches): 10.00 Weight (Pounds): 325 General Appearance: no apparent distress, alert Neck: normal alignment, supple Cardiovascular: normal rate, regular rhythm Respiratory/Chest: lungs clear, normal breath sounds, no respiratory distress Abdomen: non tender, soft, no mass Neurologic: no motor/sensory deficits, abnormal gait, alert, oriented x 3 Ramesh Bocanegra MD February 12, 2019 17:20
--- NOTE | 2019-02-12 19:28 | NUR ---
HAND-OFF: Report given to mango lopes rn.
[2019-02-12 20:00] VITALS: BP 125/70
[2019-02-13] VITALS: BP 97/60
--- NOTE | 2019-02-13 00:17 | NUR ---
NURSE NOTES: Patient bed awake and oriented. VSS. No SOB noted. SUPERVISOR [employer] use for increasing pain re-inforced. IS at bedside. Patient complaining of redness and soreness on the PICC line site. Site is cleaned and dried well, PICC Line dressing changed. Dressings are dry and intact. ROSARIO in place. No signs of distress noted. Family at bedside. Needs attended. Call light within reach. In stable condition.
--- NOTE | 2019-02-13 00:24 | NUR ---
NURSE NOTES: PRN dilaudid given for 7/10 surgical site pain. Tolerated well. Will continue to monitor and re-assess patient.
[2019-02-13] MEDS: DiphenhydrAMINE 50mg/ml Inj IVP PRN ×3 (01:58→21:20)
[2019-02-13 04:00] VITALS: BP 155/85
[2019-02-13] MEDS: ceFAZolin sod 2 GM in D5W 110 ML IVPB SCH ×3 (04:00→20:00)
[2019-02-13] MEDS: Heparin 5000 units/ml inj SUBQ SCH ×3 (05:45→22:28)
[2019-02-13] MEDS: PCA shift volume MISC SCH (07:00)
[2019-02-13 08:00] VITALS: BP 118/75
--- NOTE | 2019-02-13 08:00 | NUR ---
NURSE NOTES: Received report from Jonathan Tavares. pt a/a/o x4 laying in bed with no signs of distress or other issues at this time. surgical dressing dry and intact. pt has a PICC line on the left upper arm running YARN WASHER Dilaudid. pt has a ROSARIO drain on the right groin over night output was 10ml. pt on a regular diet, tolerating it well with no signs of n/v. sister at bed side. call light within reach, bed in lowest position. side rales up x2. plan to d/c home tomorrow with HH for wound care. I will f/u as needed.
[2019-02-13] MEDS ORDERED: Naloxone 0.4mg/ml Inj IV PRN (09:00)
--- NOTE | 2019-02-13 10:30 | NUR ---
NURSE NOTES: Called and left message to Madeleine RICHARDSON, to f/u with home health arrangements. RN also called and faxed home RX for Dilaudid 2mg #30 and Keflex 500mg po QID x7 days to [facility]. The delivered medications to pt's room. RN delivered to our pharmacy to held meds until d/c home tomorrow. I will f/u as needed.
--- NOTE | 2019-02-13 11:41 | NUR ---
*-* NO INSURANCE INFORMATION TO SEND CLINICALS OR REVIEWS *-*
[2019-02-13 12:00] VITALS: BP 123/72
[2019-02-13] MEDS ORDERED: HYDROmorphone 2mg tab ORAL PRN (12:15)
--- NOTE | 2019-02-13 12:45 | General Progress Note ---
Assessment/Plan Assessment/Plan: #Hidradenitis suppurativa with subjective fevers and multiple draining abscesses , s/p bilateral groin debridement and closure - continue Ancef 2 g IV q8H - can transition to Keflex as outpatient, possible discharge home tomorrow - Continue excellent postoperative care - Encourage mobilization/ambulation - Encourage incentive spirometry to optimize pulmonary hygiene - DVT/GI prophylaxis as appropriate - Pain control and supportive care #Morbid obesity - outpatient followup VTE PPx Heparin SC Full Code Subjective Date patient seen: February 13, 2019 Time patient seen: 12:30 ROS Limited/Unobtainable: No Cardiovascular: Denies: chest pain, edema Respiratory: Denies: cough, orthopnea, shortness of breath Gastrointestinal/Abdominal: Denies: abdomen distended, abdominal pain Allergies: Coded Allergies: Pork (Verified Allergy, Intermediate, Hives, 02/11/19) SULFA (SULFONAMIDE ANTIBIOTICS) (Unverified Allergy, Intermediate, 02/11/19) rash VANCOMYCIN (Verified Adverse Reaction, Severe, johana syndrome. Please Run Slower Infusion, 02/11/19) severe rash when given in a fast rate Uncoded Allergies: sea food (Allergy, Severe, Anaphylaxis, 12/17/18) Subjective Medicine follow up for severe bilateral groin hidradenitis s/p excision. No further dyspnea reported Objective Last 24 Hour Vital Signs Date Time Temp Pulse Resp B/P (MAP) Pulse Ox O2 Delivery O2 Flow Rate FiO2 02/13/19 09:00 Nasal Cannula 3.0 02/13/19 08:00 18 02/13/19 08:00 98.2 90 16 118/75 (89) 99 02/13/19 06:56 Room Air 21 02/13/19 06:56 99 Room Air 21 02/13/19 06:56 88 18 Room Air 02/13/19 04:00 98.0 88 20 155/85 (108) 99 02/13/19 04:00 18 02/13/19 00:00 98.5 82 18 97/60 (72) 97 02/13/19 00:00 18 02/12/19 21:00 Nasal Cannula 3.0 02/12/19 20:00 Room Air 21 02/12/19 20:00 98 Room Air 21 02/12/19 20:00 98.3 89 18 125/70 (88) 99 02/12/19 20:00 18 02/12/19 16:00 18 02/12/19 15:34 98.0 77 19 115/70 (85) 99 Intake and Output 02/12/19 02/13/19 18:59 06:59 Intake Total 1120 ml Output Total 10 ml Balance 1110 ml Intake Oral 1120 ml Output Drainage Total 10 ml # Voids 3 # Bowel Movements 1 Height (Feet): 5 Height (Inches): 10.00 Weight (Pounds): 324 General Appearance: no apparent distress, alert Neck: normal alignment, supple Cardiovascular: normal rate, regular rhythm Respiratory/Chest: lungs clear, normal breath sounds, no respiratory distress Abdomen: non tender, soft, no organomegaly Ramesh Bocanegra MD February 13, 2019 12:45
--- NOTE | 2019-02-13 13:27 | NUR ---
*-* INSURANCE *-* ALL CLINICALS AND REVIEWS HAVE BEEN FAXED TO: [facility] ATTN:JAVIER (NO NCM) F:[phone] F2:[phone]
--- NOTE | 2019-02-13 13:43 | NUR ---
DISCHARGE PLANNING SPOKE WITH SOMEONE AT INSURANCE WHO STATED SHE WILL HAVE A LAB SUPPORT TECH CALL BACK WITH INFORMATION ABOUT HOME HEALTH
--- NOTE | 2019-02-13 14:31 | NUR ---
CASE MANAGEMENT:REVIEW 02/13/19 SI: POD #2...ROSARIO DRAIN 98.8 86 16 123/72 99% ON RA IS: IV ANCEF Q8HRS DILAUDID PO Q4HRS PRN HEPARIN SQ Q8HRS : MED/SURG STATUS 3 EAST DCP: HOME
--- NOTE | 2019-02-13 14:35 | NUR ---
DISCHARGE PLANNING SPOKE TO INPATIENT SENIOR WINDOWS ENGINEER (TIMOTEO) WITH [facility]. PER TIMOTEO WE WOULD HAVE TO CONTACT PATIENT'S BENEFITS DEPARTMENT TO SEE IF SHE HAS HOME HEALTH BENEFITS SPOKE WITH OUR ADMITTING DIRECTOR WHO RESEARCHED PATIENT'S INSURANCE PLAN AND FOUND THAT PLAN IS VERY LIMITED AND PATIENT DOES NOT HAVE HOME HEALTH BENEFITS BEDSIDE NURSE NOTIFIED OF ABOVE AND REQUESTED THEY START TEACHING FAMILY HOW TO DO DRESSING CHANGES
[2019-02-13 16:00] VITALS: BP 123/77
--- NOTE | 2019-02-13 19:35 | NUR ---
HAND-OFF: Report given to Jonathan Niño pt in stable condition. - RN reinforced surgical dressing. - total ROSARIO output: 10ml.
[2019-02-13 20:00] VITALS: BP 135/77
[2019-02-13] MEDS ORDERED: Dyna-Hex 2% Top Sol 2oz TOPIC SCH (20:00)
--- NOTE | 2019-02-13 20:10 | NUR ---
NURSE NOTES: Patient in bed awake and oriented. VSS. No SOB noted. Dressing is clean and dry. ROSRAIO site intact and draining well. No pain noted at this time. Needs attended. Due meds given. In stable condition.
--- NOTE | 2019-02-13 23:07 | NUR ---
HAND-OFF: Report given to Jonathan Georges RN.
--- NOTE | 2019-02-13 23:08 | NUR ---
NURSE NOTES: Received report from Jonathan England RN and rounds done. Received pt in bed, AOX4, denies pain at this time, surgical dressing C/D/I. Picc line patent, clean and dry, no distress noted. Safety measures maintained. Bed in lowest position and locked, side rails up x 2, call light within reach. Family at bedside. Will continue to monitor.
[2019-02-14] VITALS: BP 129/74
[2019-02-14] MEDS ORDERED: HYDROmorphone 2mg tab ORAL PRN (00:15)
[2019-02-14 04:00] VITALS: BP 143/84
[2019-02-14] MEDS: ceFAZolin sod 2 GM in D5W 110 ML IVPB SCH ×2 (04:00→12:31)
[2019-02-14] MEDS: DiphenhydrAMINE 50mg/ml Inj IVP PRN ×2 (04:45→15:02)
[2019-02-14] MEDS: Heparin 5000 units/ml inj SUBQ SCH ×2 (06:03→13:11)
--- NOTE | 2019-02-14 07:30 | NUR ---
HAND-OFF: Report given to LÁZARO Sanches. Pt stable condition.
[2019-02-14 08:00] VITALS: BP 141/79
--- NOTE | 2019-02-14 08:00 | NUR ---
NURSE NOTES: Received report from Jonathan Niño pt a/a/o x4 laying in bed with no signs of distress or other issues at this time. surgical dressing dry and intact. pt is a regular diet, pt is tolerating well with no signs of n/v. PICC line in place in the left upper arm. dressing changed on 02/12/19. joss light within reach, bed in lowest position, side rales up x2. pt's sister at bed site. I will f/u as needed.
--- NOTE | 2019-02-14 08:40 | NUR ---
CASE MANAGEMENT:REVIEW 02/14/19 SI: POD #3...ROSARIO DRAIN 98.0 101 20 141/79 97% ON RA IS: IV ANCEF Q8HRS DILAUDID PO Q4HRS PRN IV DILAUDID Q4HRS PRN HEPARIN SQ Q8HRS : MED/SURG STATUS 3 EAST DCP: HOME PLAN: IT SEEMS PATIENT HAS A LIMITED INSURANCE POLICY AND DOES NOT HAVE ANY HOME HEALTH BENEFITS EXTENSIVE WOUND IS NEEDED
--- NOTE | 2019-02-14 09:55 | General Progress Note ---
Progress Note Progress Note Pt seen and examined. POD# 3 and doing well. Dressings removed and incisions are all intact. No evidence of infection Will dc home today on abx and pain meds. F up in my office in 7-10 days. Ronit Birmingham MD, MD February 14, 2019 09:55
--- NOTE | 2019-02-14 11:01 | Discharge Summary ---
Discharge Summary Hospital Course Date of Admission February 11, 2019 at 14:24 Date of Discharge 02/14/19 Admitting Diagnosis HPI Arleth Domingo is a 23 year old female who was admitted on February 11, 2019 at 14: 24 for Hydradenitis/Picc Line Hospital Course #Hidradenitis suppurativa with subjective fevers and multiple draining abscesses , s/p bilateral groin debridement and closure - stable for discharge home today - continue with Keflex as outpatient - Encourage mobilization/ambulation - Encourage incentive spirometry to optimize pulmonary hygiene - Pain control and supportive care #Morbid obesity - outpatient followup VTE PPx Heparin SC Full Code Discharge Discharge Disposition Patient was discharged to Home Discharge Diagnoses: (1) Hydradenitis Ramesh Bocanegra MD February 14, 2019 11:01
[2019-02-14] MEDS ORDERED: DILAUDID 22 MG/1 M2 PO (11:38)
[2019-02-14] MEDS ORDERED: CEPHALEXIN500 MG ORAL (11:40)
[2019-02-14 12:00] VITALS: BP 140/83
--- NOTE | 2019-02-14 13:49 | NUR ---
*-* INSURANCE *-* ALL CLINICALS AND REVIEWS HAVE BEEN FAXED TO: [facility] ATTN:JAVIER (NO [facility]) F:[phone] F2:[phone] Addendum: 02/14/19 at 1350 by JAYMIE HOGUE CM DISCHARGE SUMMARY FAXED
[2019-02-14 16:00] VITALS: BP 146/79
--- NOTE | 2019-02-14 19:27 | NUR ---
HAND-OFF: Report given to Jonathan Rucker pt in stable condition. - RN given discharge instructions to patient and pt's family. Also given her Dilaudid and Keflex pills for home use. - RN endorsed to the incoming nurse that PICC line needs to be removed prior to d/c.
--- NOTE | 2019-02-14 19:30 | NUR ---
NURSE NOTES: Received report from LÁZARO Sanches and rounds made. Received pt in bed, AOX4, pain level 7/10, pt just received pain medication, no distress noted. Discharge instruction already given to pt by am nurse LÁZARO Sanches. Pt verbalized understanding of discharge instruction. Will discharge after 1 hour. Bed in lowest position and locked, side rails up x 2, call light within reach. Will continue to monitor. Families at bedside.
--- NOTE | 2019-02-14 19:45 | NUR ---
NURSE NOTES: B/P 160/81, HR 98. No distress noted. Will continue to monitor.
--- NOTE | 2019-02-14 20:15 | NUR ---
NURSE NOTES: Recheck B/P 147/83, HR 100. Picc line removed per MD order, 40cm intact tip noted. Applied 4x4 nd silk tape. Will continue to monitor. for bleeding and then discharge pt.
--- NOTE | 2019-02-14 20:27 | NUR ---
NURSE NOTES: Discharge pt via wheelchair accompanied by DES Roldan and jermaine. All belongings taken. VSS. No distress noted. Pt in stable condition.
== END 2019-02-14 20:35 | disposition home or self-care (01) | DRG 571 ==
LOC: SUR 08:15 → 3E 14:24
PROC: 02HV33Z Insertion of Infusion Device into Superior Vena Cava, Percutaneous Approach (ICD-10-PCS; principal; 2019-02-11 11:30)
PROC: 0JX80ZZ Transfer Abdomen Subcutaneous Tissue and Fascia, Open Approach (ICD-10-PCS; principal; 2019-02-11 11:30)
PROC: 0JB80ZZ Excision of Abdomen Subcutaneous Tissue and Fascia, Open Approach (ICD-10-PCS; principal; 2019-02-11 11:30)
DX: L02.214 Cutaneous abscess of groin (principal); Z68.42 Body mass index [BMI] 45.0-49.9, adult; L73.2 Hidradenitis suppurativa; E66.01 Morbid (severe) obesity due to excess calories; Z88.1 Allergy status to other antibiotic agents; Z88.2 Allergy status to sulfonamides
CPT/HCPCS: 36415; 36569; 71045; 76937; 80048; 81025; 85025; 94003; 94150; 94640; 94664; 94760; J2405; J2710; J7620